=== PATIENT | female | born 1935 | race Hispanic/Latino ===

== ENCOUNTER → 2017-03-21 | Outpatient (CLI) | payer MEDICARE, OTHER ==
[~2017-03-21] MED LIST: BUDE10.2 IH; DILT180C86 PO; FURO40TA5 PO; GABA-529 PO; LATA2.5D2 OU; LEVO100T12 PO; LISI-617 PO; MOME17N NASAL; MONT10TA24 PO; PANT40TA25 PO; POTA10CA44 PO; VIT1TABL66 PO
== END | disposition home or self-care (01) ==
LOC: RAH 08:01
PROVIDERS: ATTEND Family Medicine
DX: Z12.31 Encounter for screening mammogram for malignant neoplasm of breast (principal)
CPT/HCPCS: 77067

== ENCOUNTER → 2018-08-13 | Outpatient (CLI) | payer OTHER | END | disposition home or self-care (01) | LOC: SHCH 13:45 | PROVIDERS: ATTEND Internal Medicine Cardiovascular Disease | DX: I11.9 Hypertensive heart disease without heart failure (principal); I07.1 Rheumatic tricuspid insufficiency; Z95.3 Presence of xenogenic heart valve | CPT/HCPCS: 93306 ==

== ENCOUNTER 2019-01-23 11:20 | Observation (INO) | payer OTHER ==
[2019-01-21 15:27] VITALS: BP 194/84
[2019-01-21 15:34] LABS: CREATININE 0.9 mg/dL (0.5-1.5); POTASSIUM 4.3 mmol/L (3.5-5.1)
[2019-01-21 15:39] LABS: BASOPHILS % (AUTO) 0.6 % (0.0-5.0); HEMATOCRIT 34.9 % (36-48); INR 1.76 (0.85-1.15); LYMPHOCYTES % (AUTO) 21.6 % (21.0-51.0); MEAN CORPUSCULAR HEMOGLOBIN 29.3 pg (27.0-33.0); MEAN CORPUSCULAR HGB CONC 32.2 g/dL (32.0-36.0); MONOCYTES % (AUTO) 11.9 % (3.0-13.0); NEUTROPHILS % (AUTO) 61.9 % (40.0-77.0); PARTIAL THROMBOPLASTIN TIME 31.7 SEC (26.3-35.5); PLATELET COUNT (AUTO) 88 K/uL (130-400); PROTHROMBIN TIME 18.1 SEC (9.6-11.6); RED BLOOD CELL COUNT(AUTO) 3.83 MIL/uL (4.00-5.50); RED CELL DISTRIBUTION WIDTH 14.4 % (11.0-15.5)
[2019-01-21 16:10] LABS: EOSINOPHILS % (MANUAL) 5 % (1-6); LYMPHOCYTES % (MANUAL) 19 % (22-44); MAN.DIFF COMMENT-IMPRESSION MANUAL DIFFERENTIAL; MONOCYTES % (MANUAL) 8 % (2-9); SEGMENTED NEUTROPHILS % 68 % (40-70)
--- NOTE | 2019-01-22 10:20 | NUR ---
labs informed marbin newsome of abnormal platelet level/h&h. she will inform dr. levine
--- NOTE | 2019-01-22 10:22 | NUR ---
LABS ONEAL, ABBY ON PHONE. PER DR. NATION, RECHECK CBC IN AM OF PROCEDURE.
[2019-01-23] VITALS (9 sets, daily range): BP systolic 138–173; BP diastolic 67–82
[~2019-01-23] VITALS: Ht 152.4 cm; Wt 100.6 kg
--- NOTE | 2019-01-23 10:18 | NUR ---
LABS INFORMED DR. RIOS HIGGINS'S COCOA POWDER MIXER OPERATOR OF PT 18.1, INR 1.76 DRAWN ON 01/21/19. ORDERS TO REPEAT PT/INR UPON ARRIVAL TODAY.
[~2019-01-23 11:20] MED LIST changes: +ALBU8.5H8 IH; +BRIM5DRO4 OU; -BUDE10.2 IH; +CARV12.511 PO; +CEFAZOLIN SODIUM 1 GM VIAL IVP ONE; -DILT180C86 PO; +FLUT16H NASAL; -LATA2.5D2 OU; -LEVO100T12 PO; +LEVO88TA7 PO; -LISI-617 PO; -MOME17N NASAL; +SACU1TAB7 PO; +SODIUM CHLORIDE 0.9% 1000ML 1,000 ML IV SCH; -VIT1TABL66 PO; +WARF2.5T9 PO
[2019-01-23 11:48] LABS: BASOPHILS % (AUTO) 0.5 % (0.0-5.0); EOSINOPHILS % (AUTO) 4.9 % (0.0-8.0); HEMATOCRIT 35.5 % (36-48); LYMPHOCYTES % (AUTO) 21.5 % (21.0-51.0); MEAN CORPUSCULAR HEMOGLOBIN 29.7 pg (27.0-33.0); MEAN CORPUSCULAR HGB CONC 32.7 g/dL (32.0-36.0); MEAN CORPUSCULAR VOLUME 90.8 fL (79-99); MONOCYTES % (AUTO) 10.2 % (3.0-13.0); NEUTROPHILS % (AUTO) 62.9 % (40.0-77.0); PLATELET COUNT (AUTO) 99 K/uL (130-400); RED BLOOD CELL COUNT(AUTO) 3.91 MIL/uL (4.00-5.50); RED CELL DISTRIBUTION WIDTH 14.2 % (11.0-15.5); WHITE BLOOD COUNT (AUTO) 3.2 K/uL (4.8-10.8)
[2019-01-23 12:01] LABS: INR 1.44 (0.85-1.15); PARTIAL THROMBOPLASTIN TIME 30.6 SEC (26.3-35.5); PROTHROMBIN TIME 14.9 SEC (9.6-11.6)
--- NOTE | 2019-01-23 13:12 | NUR ---
LABS REPEAT LABS REPORTED TO DR. RIOS IHGGINS'S CUSTOMER PROJECT MANAGER H/H 11.6/35.5, PLT 99, PT 14.9, INR 1.44. NO FURTHER ORDERS GIVEN, MAY PROCEED WITH PLANNED PROCEDURE.
[2019-01-23] MEDS ORDERED: BUPIVACAINE/PF 0.25% 30ML VIAL IJ ONE (15:36)
[2019-01-23] MEDS ORDERED: CEFAZOLIN SODIUM 1 GM VIAL ONE (15:36)
[2019-01-23] MEDS ORDERED: MIDAZOLAM HCL 1 MG/ML 2ML VIAL ONE ×4 (15:37→17:21)
[2019-01-23] MEDS ORDERED: LIDOCAINE HCL 1% MDV 50ML VIAL ONE (15:37)
[2019-01-23] MEDS ORDERED: MEPERIDINE-PF 25 MG/ML SYG ONE ×4 (15:37→17:20)
[2019-01-23] MEDS ORDERED: VANCOMYCIN 1GM+NS 250ML 500 ML IV ONE (15:50)
--- NOTE | 2019-01-23 15:50 | NUR ---
TO TRAVERTINE INSTALLER PT TAKEN TO TRAVERTINE INSTALLER VIA BED BY DANIEL SARAVIA. PT STABLE.
[2019-01-23] MEDS ORDERED: IODIXANOL 320 MG/ML 100 ML VIAL ONE (16:16)
[2019-01-23] MEDS ORDERED: TRAMADOL HCL 50 MG TABLET PO PRN (17:45)
[2019-01-23] MEDS ORDERED: POTASSIUM CHLORIDE 10 MEQ/TAB.SA PO PRN (17:45)
[2019-01-23] MEDS ORDERED: WARFARIN SODIUM 2.5 MG TAB PO SCH (19:00)
[2019-01-23] MEDS: GABAPENTIN 100 MG CAPSULE PO SCH (21:00)
[2019-01-23] MEDS ORDERED: VALSARTAN PO SCH (21:00)
[2019-01-23] MEDS ORDERED: SACUBITRIL PO SCH (21:00)
[2019-01-23] MEDS ORDERED: MONTELUKAST SODIUM 10 MG TAB PO SCH (21:00)
[2019-01-23] MEDS: CARVEDILOL 12.5 MG TABLET PO SCH (21:07)
[2019-01-23] MEDS: BRIMONIDINE TARTRATE 0.2% 5 ML BOTTLE OU SCH (21:08)
[2019-01-23] MEDS: FLUTICASONE PROPIONATE 50MCG/SPRAY 16 GM BOTTLE NS SCH (21:09)
[2019-01-24 03:00] VITALS: BP 139/63
[2019-01-24 03:52] LABS: BASOPHILS % (AUTO) 0.4 % (0.0-5.0); EOSINOPHILS % (AUTO) 3.6 % (0.0-8.0); HEMATOCRIT 31.8 % (36-48); LYMPHOCYTES % (AUTO) 20.1 % (21.0-51.0); MEAN CORPUSCULAR HEMOGLOBIN 30.5 pg (27.0-33.0); MEAN CORPUSCULAR HGB CONC 33.4 g/dL (32.0-36.0); MEAN CORPUSCULAR VOLUME 91.1 fL (79-99); MONOCYTES % (AUTO) 11.9 % (3.0-13.0); PLATELET COUNT (AUTO) 79 K/uL (130-400); RED BLOOD CELL COUNT(AUTO) 3.49 MIL/uL (4.00-5.50); RED CELL DISTRIBUTION WIDTH 14.2 % (11.0-15.5); WHITE BLOOD COUNT (AUTO) 3.6 K/uL (4.8-10.8)
[2019-01-24 04:00] LABS: CREATININE 0.9 mg/dL (0.5-1.5); POTASSIUM 3.9 mmol/L (3.5-5.1)
--- NOTE | 2019-01-24 06:00 | NUR ---
Patient resting in bed. Radial pulses palpable. Left upper extremity warm to touch. C/O pain and pressure to site. Medicated x1 with ordered pain med. NO hematoma or active bleeding to site.
[2019-01-24] MEDS ORDERED: LEVOTHYROXINE 88 MCG TABLET PO SCH (06:30)
[2019-01-24] MEDS ORDERED: ALBUTEROL SULFATE 0.083% 2.5 MG/3 ML INH IH PRN (06:30)
[2019-01-24] MEDS ORDERED: ACETAMINOPHEN 325 MG TAB PO SCH (07:30)
[2019-01-24 07:58] VITALS: BP 143/72
[2019-01-24] MEDS: GABAPENTIN 100 MG CAPSULE PO SCH (08:57)
[2019-01-24] MEDS: CARVEDILOL 12.5 MG TABLET PO SCH (08:57)
[2019-01-24] MEDS: FLUTICASONE PROPIONATE 50MCG/SPRAY 16 GM BOTTLE NS SCH (08:58)
[2019-01-24] MEDS: BRIMONIDINE TARTRATE 0.2% 5 ML BOTTLE OU SCH (08:58)
[2019-01-24] MEDS ORDERED: PANTOPRAZOLE SODIUM 40 MG TABLET.DR PO SCH (09:00)
[2019-01-24] MEDS ORDERED: FUROSEMIDE 40 MG TABLET PO SCH (09:00)
[2019-01-24 11:36] VITALS: BP_SYST 116; BP_SYST 16; BP_DIAS 54
--- NOTE | 2019-01-24 14:25 | NUR ---
DISCHARGE VERBAL & WRITTEN DISCHARGE INSTRUCTIONS REVIEWED & GIVEN TO PT, DAUGHTER, & SPOUSE. QUESTIONS ENCOURAGED & CLARIFIED. PROPER CARE & ACTIVITY AFTER BiV ICD UPGRADE REVIEWED. PT TO CONTINUE HOME MEDICATIONS. ARM PRECAUTIONS-PPM REINFORCED. TELE ANDREW REMOVED. IV DISCONTINUED. PT & FAMILY TO GATHER PERSONAL BELONGINGS. WILL NOTIFY STAFF WHEN READY TO BE TAKEN TO PRIVATE VEHICLE.
--- NOTE | 2019-01-24 15:15 | NUR ---
DISCHARGE PT TAKEN TO PRIVATE VEHICLE VIA WC BY Stephanie BLACKWOOD PCP, ACCOMPANIED BY FAMILY. NO DISTRESS NOTED.
== END 2019-01-24 15:15 | disposition home or self-care (01) ==
LOC: DAH 11:20 → 2DH 11:21
PROVIDERS: ADMIT Internal Medicine; ATTEND Internal Medicine
DX: I44.2 Atrioventricular block, complete (principal); I50.22 Chronic systolic (congestive) heart failure; I48.92 Unspecified atrial flutter; I09.81 Rheumatic heart failure; I42.9 Cardiomyopathy, unspecified; I05.0 Rheumatic mitral stenosis; Z95.2 Presence of prosthetic heart valve; Z95.0 Presence of cardiac pacemaker; Z79.01 Long term (current) use of anticoagulants; Z79.899 Other long term (current) drug therapy; Z88.0 Allergy status to penicillin; Z88.6 Allergy status to analgesic agent; Z88.5 Allergy status to narcotic agent
CPT/HCPCS: 33225; 33233; 33249; 36415 ×3; 71045; 80048 ×2; 82948 ×2; 85025 ×3; 85610 ×2; 85730 ×2; 93005; A4215; A4216; A4221; A4222; A4223 ×3; A4606; A4663; C1769; C1882; C1895; C1900; G0378 ×21; J2175 ×4; J2250 ×4; J3370; J3490 ×2; J7030; Q9967; 99156; 99157; J0690

== ENCOUNTER → 2019-02-25 | Outpatient (CLI) | payer OTHER ==
[~2019-02-25] VITALS: Ht 152.4 cm; Wt 97.4 kg
[~2019-02-25] MED LIST changes: +ACET-2743 PO; +ALBU18HF7 IH; +CALC-1205 PO; -CEFAZOLIN SODIUM 1 GM VIAL IVP ONE; +CEPH500T PO; +CHOL100044 PO; +LATA7.5D OP; -SODIUM CHLORIDE 0.9% 1000ML 1,000 ML IV SCH; +SODIUM CHLORIDE 0.9% 500ML 500 ML IV SCH; +WARF2.5T85 PO
[2019-02-25 12:10] VITALS: BP 176/73
[2019-02-25 12:28] LABS: BASOPHILS % (AUTO) 0.2 % (0.0-5.0); EOSINOPHILS % (AUTO) 3.7 % (0.0-8.0); HEMATOCRIT 37.9 % (36-48); LYMPHOCYTES % (AUTO) 22.8 % (21.0-51.0); MEAN CORPUSCULAR HEMOGLOBIN 28.5 pg (27.0-33.0); MEAN CORPUSCULAR HGB CONC 31.4 g/dL (32.0-36.0); MEAN CORPUSCULAR VOLUME 90.9 fL (79-99); MONOCYTES % (AUTO) 10.1 % (3.0-13.0); NEUTROPHILS % (AUTO) 62.5 % (40.0-77.0); PLATELET COUNT (AUTO) 111 K/uL (130-400); RED BLOOD CELL COUNT(AUTO) 4.17 MIL/uL (4.00-5.50); RED CELL DISTRIBUTION WIDTH 12.9 % (11.0-15.5)
[2019-02-25 12:42] LABS: INR 1.47 (0.85-1.15); PROTHROMBIN TIME 15.2 SEC (9.6-11.6)
[2019-02-25 12:45] LABS: CREATININE 0.9 mg/dL (0.5-1.5)
--- NOTE | 2019-02-25 12:51 | NUR ---
Called Suma CHATTERJEE and spoke to her about pt coumadin regimen, per Suma De Santiago patient inr was high this past sunday and they have been making adjustment, pt is to continue medication regimen as explained to her and tomorrow 02/26/19 she will follow up at the office for pt/inr. I also advised Smua De Santiago that pt was taking an antibiotic given from Primary doctor, Suma CHATTERJEE is aware. No new orders at this moment.
== END ==
LOC: EDSTATUS 08:00 → DAH 10:00
PROVIDERS: ATTEND Internal Medicine Cardiovascular Disease
DX: Z01.818 Encounter for other preprocedural examination (principal); I48.3 Typical atrial flutter; Z88.0 Allergy status to penicillin; Z88.5 Allergy status to narcotic agent; Z88.6 Allergy status to analgesic agent; Z79.01 Long term (current) use of anticoagulants
CPT/HCPCS: 36415; 80048; 85025; 85610; 85730; 93005

== ENCOUNTER 2019-04-03 08:18 | Day surgery (SDC) | payer OTHER ==
[2019-04-01 09:45] LABS: BASOPHILS % (AUTO) 0.3 % (0.0-5.0); EOSINOPHILS % (AUTO) 3.5 % (0.0-8.0); HEMATOCRIT 33.4 % (36-48); MEAN CORPUSCULAR HEMOGLOBIN 28.5 pg (27.0-33.0); MEAN CORPUSCULAR HGB CONC 30.5 g/dL (32.0-36.0); MEAN CORPUSCULAR VOLUME 93.3 fL (79-99); MONOCYTES % (AUTO) 10.2 % (3.0-13.0); NEUTROPHILS % (AUTO) 61.7 % (40.0-77.0); PLATELET COUNT (AUTO) 87 K/uL (130-400); RED BLOOD CELL COUNT(AUTO) 3.58 MIL/uL (4.00-5.50); RED CELL DISTRIBUTION WIDTH 13.4 % (11.0-15.5); WHITE BLOOD COUNT (AUTO) 3.1 K/uL (4.8-10.8)
[2019-04-01 09:52] VITALS: BP 170/81
[2019-04-01 09:56] LABS: CREATININE 0.9 mg/dL (0.5-1.5); INR 1.16 (0.85-1.15); PARTIAL THROMBOPLASTIN TIME 30.1 SEC (26.3-35.5); POTASSIUM 4.3 mmol/L (3.5-5.1); PROTHROMBIN TIME 12.1 SEC (9.6-11.6)
--- NOTE | 2019-04-01 10:52 | NUR ---
CALLED ELIZABET CHATTERJEE (DOCTOR RIOS) AND SHE STATED THAT THEY ARE AWARE THE PATIENT IS NO LONGER ON COUMADIN AND PATIENT IS ON ELIQUIS.
--- NOTE | 2019-04-02 18:52 | NUR ---
ABNORMAL LABS REPORTED TO SEN MCNEAL NEW ORDERS TO REPEAT CBC DOS.
[~2019-04-03] VITALS: Ht 153.7 cm; Wt 99.3 kg
[~2019-04-03 08:18] MED LIST changes: -ACET-2743 PO; -ALBU8.5H8 IH; +APIX5TAB PO; +BRIM5DRO4 OD; -BRIM5DRO4 OU; -CEPH500T PO; +FLUT15.845 NS; -FLUT16H NASAL; -GABA-529 PO; -LATA7.5D OP; +LATA7.5D OU; -MONT10TA24 PO; +MONT10TA26 PO; +SODIUM CHLORIDE 0.9% 1000ML 1,000 ML IV SCH; -SODIUM CHLORIDE 0.9% 500ML 500 ML IV SCH; -WARF2.5T85 PO; -WARF2.5T9 PO
--- NOTE | 2019-04-03 09:03 | NUR ---
PATIENT ARRIVED TO DAY PATIENT ACCOMPANIED BY HER SELF. PATIENT AAOX3, RESPIRATIONS UNLABORED, VITAL SIGNS STABLE. PROCEDURE VERIFIED WITH PATIENT AND HOSPITAL ROUTINE EXPLAINED.
[2019-04-03 09:22] LABS: BASOPHILS % (AUTO) 0.3 % (0.0-5.0); EOSINOPHILS % (AUTO) 3.1 % (0.0-8.0); HEMATOCRIT 32.1 % (36-48); LYMPHOCYTES % (AUTO) 24.8 % (21.0-51.0); MEAN CORPUSCULAR HEMOGLOBIN 29.1 pg (27.0-33.0); MEAN CORPUSCULAR HGB CONC 31.5 g/dL (32.0-36.0); MEAN CORPUSCULAR VOLUME 92.5 fL (79-99); MONOCYTES % (AUTO) 10.8 % (3.0-13.0); NEUTROPHILS % (AUTO) 60.3 % (40.0-77.0); PLATELET COUNT (AUTO) 84 K/uL (130-400); RED BLOOD CELL COUNT(AUTO) 3.47 MIL/uL (4.00-5.50); RED CELL DISTRIBUTION WIDTH 13.5 % (11.0-15.5); WHITE BLOOD COUNT (AUTO) 2.9 K/uL (4.8-10.8)
[2019-04-03 09:30] VITALS: BP 135/75
--- NOTE | 2019-04-03 09:43 | NUR ---
LABS INFORMED SEN WOLFF OF NEW WBC/PLATELETS RESULTS. SHE WILL INFORM DR. NATION AND CALL ME BACK.
[2019-04-03 10:27] LABS: BAND NEUTROPHILS % (MANUAL) 1 % (0-2); BASOPHILS % (MANUAL) 1 % (0-2); EOSINOPHILS % (MANUAL) 2 % (1-6); LYMPHOCYTES % (MANUAL) 20 % (22-44); MAN.DIFF COMMENT-IMPRESSION MANUAL DIFFERENTIAL; MONOCYTES % (MANUAL) 8 % (2-9); PLATELET MORPHOLOGY COMMENT DECREASED; SEGMENTED NEUTROPHILS % 68 % (40-70)
--- NOTE | 2019-04-03 11:17 | NUR ---
HANDOFF REPORT GIVEN TO PIETER MONAE RN AT BEDSIDE USING SBAR, ALL QUESTIONS/CONCERNS ADDRESSED REGARDING PATIENT CARE.
[2019-05-01] MEDS ORDERED: GABA-529 PO (12:08)
[2019-05-01] MEDS ORDERED: ALBU8.5H8 IH (12:14)
[2019-05-01] MEDS ORDERED: ACET-2123 PO (12:14)
== END 2019-04-03 16:25 | disposition home or self-care (01) ==
LOC: DAH 08:18
PROVIDERS: ATTEND Internal Medicine Cardiovascular Disease
DX: I48.3 Typical atrial flutter (principal); I25.10 Atherosclerotic heart disease of native coronary artery without angina pectoris; I11.0 Hypertensive heart disease with heart failure; I50.42 Chronic combined systolic (congestive) and diastolic (congestive) heart failure; E11.9 Type 2 diabetes mellitus without complications; E66.9 Obesity, unspecified; G47.30 Sleep apnea, unspecified; Z68.41 Body mass index [BMI] 40.0-44.9, adult; Z88.0 Allergy status to penicillin; Z88.5 Allergy status to narcotic agent; Z88.8 Allergy status to other drugs, medicaments and biological substances; Z79.01 Long term (current) use of anticoagulants; Z79.899 Other long term (current) drug therapy; Z98.890 Other specified postprocedural states; Z82.49 Family history of ischemic heart disease and other diseases of the circulatory system
CPT/HCPCS: 36415 ×2; 80048; 82948; 85025 ×2; 85610; 85730; A4215; A4216; A4221; A4222; A4223 ×2; A4606; A4663; J7030

== ENCOUNTER → 2019-05-01 | Outpatient (CLI) | payer OTHER ==
[~2019-05-01] VITALS: Ht 152.4 cm; Wt 101.0 kg
[~2019-05-01] MED LIST changes: +ACET-2123 PO; +ALBU8.5H8 IH; +CA C1TAB74 PO; +GABA-529 PO; +MV-M1TAB20 PO; -SODIUM CHLORIDE 0.9% 1000ML 1,000 ML IV SCH
[2019-05-01 11:27] VITALS: BP 164/74
[2019-05-01 11:29] LABS: CREATININE 0.9 mg/dL (0.5-1.5); POTASSIUM 4.3 mmol/L (3.5-5.1)
[2019-05-01 11:40] LABS: BASOPHILS % (AUTO) 0.3 % (0.0-5.0); EOSINOPHILS % (AUTO) 3.4 % (0.0-8.0); HEMATOCRIT 36.4 % (36-48); LYMPHOCYTES % (AUTO) 23.1 % (21.0-51.0); MEAN CORPUSCULAR HEMOGLOBIN 28.2 pg (27.0-33.0); MEAN CORPUSCULAR HGB CONC 30.8 g/dL (32.0-36.0); MEAN CORPUSCULAR VOLUME 91.7 fL (79-99); MONOCYTES % (AUTO) 10.5 % (3.0-13.0); NEUTROPHILS % (AUTO) 62.4 % (40.0-77.0); PLATELET COUNT (AUTO) 90 K/uL (130-400); RED BLOOD CELL COUNT(AUTO) 3.97 MIL/uL (4.00-5.50); RED CELL DISTRIBUTION WIDTH 13.3 % (11.0-15.5); WHITE BLOOD COUNT (AUTO) 3.3 K/uL (4.8-10.8)
[2019-05-01 11:48] LABS: INR 1.17 (0.85-1.15); PROTHROMBIN TIME 12.2 SEC (9.6-11.6)
--- NOTE | 2019-05-01 15:30 | NUR ---
RE: ABNORMAL LABS REPORTED PT 12.2, INR 1.[address] NATION. NO NEW ORDERS ORDERS RECEIVED, MAY PROCEED WITH ABLATION ORDERED.
== END ==
LOC: EDSTATUS 10:00 → DAH 10:00
PROVIDERS: ATTEND Internal Medicine Cardiovascular Disease
DX: Z01.818 Encounter for other preprocedural examination (principal); I48.92 Unspecified atrial flutter; Z79.899 Other long term (current) drug therapy; Z88.0 Allergy status to penicillin; Z88.5 Allergy status to narcotic agent; Z88.8 Allergy status to other drugs, medicaments and biological substances; Z82.49 Family history of ischemic heart disease and other diseases of the circulatory system
CPT/HCPCS: 36415; 80048; 85025; 85610; 85730

== ENCOUNTER 2019-05-30 05:57 | Day surgery (SDC) | payer OTHER ==
[2019-05-28 10:32] VITALS: BP 141/62
[2019-05-28 10:32] LABS: BASOPHILS % (AUTO) 0.3 % (0.0-5.0); HEMATOCRIT 34.7 % (36-48); LYMPHOCYTES % (AUTO) 26.4 % (21.0-51.0); MEAN CORPUSCULAR HEMOGLOBIN 28.6 pg (27.0-33.0); MEAN CORPUSCULAR HGB CONC 30.5 g/dL (32.0-36.0); MEAN CORPUSCULAR VOLUME 93.5 fL (79-99); MONOCYTES % (AUTO) 10.4 % (3.0-13.0); NEUTROPHILS % (AUTO) 59.2 % (40.0-77.0); PLATELET COUNT (AUTO) 82 K/uL (130-400); RED BLOOD CELL COUNT(AUTO) 3.71 MIL/uL (4.00-5.50); RED CELL DISTRIBUTION WIDTH 13.4 % (11.0-15.5)
[2019-05-28 10:52] LABS: INR 1.18 (0.85-1.15); PROTHROMBIN TIME 12.7 SEC (9.6-11.6)
[2019-05-28 11:05] LABS: EOSINOPHILS % (MANUAL) 4 % (1-6); LYMPHOCYTES % (MANUAL) 21 % (22-44); MONOCYTES % (MANUAL) 6 % (2-9); SEGMENTED NEUTROPHILS % 69 % (40-70)
[2019-05-28 11:06] LABS: MAN.DIFF COMMENT-IMPRESSION MANUAL DIFFERENTIAL; PLATELET MORPHOLOGY COMMENT DECREASED
--- NOTE | 2019-05-29 10:58 | NUR ---
reported labs to Doctor Lopez wbc3.0, h/h 10.6/34.7, plt 82 and inr 1.18, pt 12.7, no new orders okay to proceed.
[~2019-05-30] VITALS: Ht 149.9 cm; Wt 100.1 kg
[2019-05-30] VITALS (8 sets, daily range): BP systolic 93–143; BP diastolic 45–61
[~2019-05-30 05:57] MED LIST changes: -CA C1TAB74 PO; -CALC-1205 PO; -CHOL100044 PO; -MV-M1TAB20 PO; -PANT40TA25 PO; +PANT40TA54 PO; -POTA10CA44 PO; +SODIUM CHLORIDE 0.9% 500ML 500 ML IV SCH
[2019-05-30] MEDS ORDERED: SODIUM CHLORIDE 0.9% 1000ML 1,000 ML IV ONE (06:25)
--- NOTE | 2019-05-30 07:40 | NUR ---
PRE OP PT ARRIVED IN NO DISTRESS. PT HERE FOR A FLUTTER ABLATION. PT CONNECTED TO REPAIR ELECTRIC MOTOR ASSEMBLER, CALL LIGHT WITH IN REACH, BED IN LOWEST POSITION.
[2019-05-30] MEDS ORDERED: CA C1TAB74 PO (08:37)
[2019-05-30] MEDS ORDERED: MV-M1TAB20 PO (08:37)
[2019-05-30] MEDS ORDERED: MEPERIDINE-PF 25 MG/ML SYG ONE ×4 (10:03→12:20)
[2019-05-30] MEDS ORDERED: MIDAZOLAM HCL 1 MG/ML 2ML VIAL ONE ×4 (10:03→12:20)
[2019-05-30] MEDS ORDERED: HEPARIN SODIUM 1000UNIT/ML 10ML VIAL ONE (10:03)
[2019-05-30] MEDS ORDERED: LIDOCAINE HCL 2% 20ML ONE ×2 (10:03→10:42)
--- NOTE | 2019-05-30 10:27 | NUR ---
TRANSFER PT TAKEN TO COMMERCIAL SALES SPECIALIST VIA BED IN NO DISTRESS BY MICHELLE SARAVIA
--- NOTE | 2019-05-30 13:00 | NUR ---
md dr levine in to talk to daughter. procedure went well. pt did have multiple arrhythmias pt expected to be discharged today and start eliliamis tonjune. follow up in 1-2 weeks. daughter voiced understanding
== END 2019-05-30 16:10 | disposition home or self-care (01) ==
LOC: DAH 05:57
PROVIDERS: ATTEND Internal Medicine Cardiovascular Disease
DX: I48.92 Unspecified atrial flutter (principal); I25.10 Atherosclerotic heart disease of native coronary artery without angina pectoris; I25.5 Ischemic cardiomyopathy; I50.32 Chronic diastolic (congestive) heart failure; I09.89 Other specified rheumatic heart diseases; Z88.0 Allergy status to penicillin; Z88.8 Allergy status to other drugs, medicaments and biological substances; Z88.5 Allergy status to narcotic agent; Z79.01 Long term (current) use of anticoagulants; Z79.899 Other long term (current) drug therapy; Z98.890 Other specified postprocedural states; Z95.0 Presence of cardiac pacemaker
CPT/HCPCS: 36415; 80048; 82948 ×2; 85025; 85610; 85730; 93005; 93613; 93621; 93653; A4215; A4216; A4221; A4222; A4223 ×3; A4606; A4649 ×2; A4663; C1730; C1732; C1894 ×2; J1644 ×2; J2175 ×4; J2250 ×4; J3490 ×2; J7030; 99156; 99157

== ENCOUNTER → 2019-12-19 | Outpatient (CLI) | payer OTHER ==
[~2019-12-19] MED LIST changes: +MV-M1TAB20 PO; -SODIUM CHLORIDE 0.9% 500ML 500 ML IV SCH
== END | disposition home or self-care (01) ==
LOC: SHCH 09:29
PROVIDERS: ATTEND Internal Medicine Cardiovascular Disease
DX: I42.9 Cardiomyopathy, unspecified (principal); Z95.2 Presence of prosthetic heart valve
CPT/HCPCS: 93306; 93356

== ENCOUNTER 2020-04-07 07:34 | Day surgery (SDC) | payer OTHER ==
[2020-04-02 10:49] LABS: BASOPHILS % (AUTO) 0.3 % (0.0-5.0); EOSINOPHILS % (AUTO) 2.7 % (0.0-8.0); HEMATOCRIT 32.7 % (36-48); LYMPHOCYTES % (AUTO) 19.5 % (21.0-51.0); MEAN CORPUSCULAR HEMOGLOBIN 28.7 pg (27.0-33.0); MEAN CORPUSCULAR HGB CONC 31.2 g/dL (32.0-36.0); MEAN CORPUSCULAR VOLUME 92.1 fL (79-99); MONOCYTES % (AUTO) 12.2 % (3.0-13.0); NEUTROPHILS % (AUTO) 64.5 % (40.0-77.0); PLATELET COUNT (AUTO) 98 K/uL (130-400); RED BLOOD CELL COUNT(AUTO) 3.55 MIL/uL (4.00-5.50); RED CELL DISTRIBUTION WIDTH 14.2 % (11.0-15.5); WHITE BLOOD COUNT (AUTO) 3.7 K/uL (4.8-10.8)
[2020-04-02 10:52] LABS: POTASSIUM 4.5 mmol/L (3.5-5.1)
[2020-04-06 12:35] VITALS: BP 171/65
[~2020-04-07] VITALS: Ht 152.4 cm; Wt 103.5 kg
[~2020-04-07 07:34] MED LIST changes: -ACET-2123 PO; +CALC600T15 PO; -CARV12.511 PO; +CYAN250014 PO; +DRON400T2 PO; +METO-408 PO; -MONT10TA26 PO; +MONT10TA96 PO; -MV-M1TAB20 PO; +POTA99TA21 PO; +VITAD50000 PO
[2020-04-07] MEDS ORDERED: SODIUM CHLORIDE 0.9% 1000ML 1,000 ML IV ONE (07:58)
== END 2020-04-07 10:00 | disposition home or self-care (01) ==
LOC: DAH 07:34
PROVIDERS: ATTEND Internal Medicine Cardiovascular Disease
DX: I47.1 Supraventricular tachycardia (principal); Z20.828 Contact with and (suspected) exposure to other viral communicable diseases; I50.33 Acute on chronic diastolic (congestive) heart failure; Z88.1 Allergy status to other antibiotic agents; Z88.8 Allergy status to other drugs, medicaments and biological substances; Z88.6 Allergy status to analgesic agent; Z53.8 Procedure and treatment not carried out for other reasons; Z79.899 Other long term (current) drug therapy
CPT/HCPCS: 36415; 93005; A4215; A4216; A4221; A4222; A4223 ×3; A4606; A4663; C9803; J7030; U0003

== ENCOUNTER 2020-05-19 07:56 | Day surgery (SDC) | payer OTHER ==
[2020-05-17 10:17] VITALS: BP 188/64
[2020-05-17 10:37] LABS: EOSINOPHILS % (AUTO) 3.4 % (0.0-8.0); HEMATOCRIT 33.5 % (36-48); LYMPHOCYTES % (AUTO) 22.5 % (21.0-51.0); MEAN CORPUSCULAR HEMOGLOBIN 28.2 pg (27.0-33.0); MEAN CORPUSCULAR HGB CONC 31.3 g/dL (32.0-36.0); MEAN CORPUSCULAR VOLUME 89.8 fL (79-99); MONOCYTES % (AUTO) 9.4 % (3.0-13.0); PLATELET COUNT (AUTO) 98 K/uL (130-400); RED BLOOD CELL COUNT(AUTO) 3.73 MIL/uL (4.00-5.50); RED CELL DISTRIBUTION WIDTH 14.1 % (11.0-15.5)
[2020-05-17 10:47] LABS: CREATININE 0.9 mg/dL (0.5-1.5); INR 1.21 (0.85-1.15); POTASSIUM 4.4 mmol/L (3.5-5.1)
[2020-05-17 10:48] LABS: PARTIAL THROMBOPLASTIN TIME 31.6 SEC (26.3-35.5)
[2020-05-17 11:08] LABS: EOSINOPHILS % (MANUAL) 3 % (1-6); LYMPHOCYTES % (MANUAL) 11 % (22-44); MAN.DIFF COMMENT-IMPRESSION MANUAL DIFFERENTIAL; MONOCYTES % (MANUAL) 8 % (2-9); PLATELET MORPHOLOGY COMMENT DECREASED; REACTIVE LYMPHOCYTES 2 % (0-0); SEGMENTED NEUTROPHILS % 76 % (40-70)
[~2020-05-19] VITALS: Ht 124.5 cm; Wt 97.5 kg
[2020-05-19] VITALS (9 sets, daily range): BP systolic 136–177; BP diastolic 62–70
[~2020-05-19 07:56] MED LIST changes: -CALC600T15 PO; -DRON400T2 PO; +IRON PO; +METO-391 PO; -METO-408 PO; +MONT-39 PO; -MONT10TA96 PO; -POTA99TA21 PO; +POTA99TA26 PO
[2020-05-19] MEDS ORDERED: 0.9%NACL 1000ML 1,000 ML IV SCH (08:00)
[2020-05-19] MEDS ORDERED: ISOPROTERENOL HCL 0.2 MG/ML AMP/VIAL/BAG ONE (12:11)
[2020-05-19] MEDS ORDERED: MIDAZOLAM HCL 1 MG/ML 2ML VIAL ONE ×3 (12:11→14:27)
[2020-05-19] MEDS ORDERED: MEPERIDINE-PF 25 MG/ML SYG ONE ×3 (12:11→14:27)
[2020-05-19] MEDS ORDERED: LIDOCAINE HCL 400MG/20ML VIAL ONE (12:12)
[2020-05-19] MEDS ORDERED: HEPARIN 10,000 UNIT/10ML (1,000 UNIT/ML) VIAL ONE (12:20)
== END 2020-05-19 18:50 | disposition home or self-care (01) ==
LOC: DAH 07:56
PROVIDERS: ATTEND Internal Medicine Cardiovascular Disease
DX: I47.1 Supraventricular tachycardia (principal); I50.22 Chronic systolic (congestive) heart failure; I48.20 Chronic atrial fibrillation, unspecified; I48.92 Unspecified atrial flutter; I25.5 Ischemic cardiomyopathy; I44.2 Atrioventricular block, complete; G47.30 Sleep apnea, unspecified; I25.10 Atherosclerotic heart disease of native coronary artery without angina pectoris; Z88.6 Allergy status to analgesic agent; Z88.0 Allergy status to penicillin; Z88.8 Allergy status to other drugs, medicaments and biological substances; Z79.01 Long term (current) use of anticoagulants; Z79.899 Other long term (current) drug therapy; Z98.890 Other specified postprocedural states; Z95.0 Presence of cardiac pacemaker
CPT/HCPCS: 36415; 80048; 85025; 85610; 85730; 93613; 93621; 93653; A4215; A4216; A4221; A4222; A4223 ×3; A4606; A4649 ×2; A4663; C1730 ×4; C1731; C1732; C1894 ×5; J1644 ×2; J2175 ×3; J2250 ×3; J3490; J7030; 99156; 99157

== ENCOUNTER → 2021-02-02 | Outpatient (CLI) | payer OTHER ==
[~2021-02-02] MED LIST changes: -ALBU18HF7 IH
== END | disposition home or self-care (01) ==
LOC: RAH 11:05
PROVIDERS: ATTEND Urology
DX: N28.1 Cyst of kidney, acquired (principal)
CPT/HCPCS: 76770

== ENCOUNTER → 2021-03-02 | Outpatient (CLI) | payer OTHER | END | disposition home or self-care (01) | LOC: RAH 09:04 | PROVIDERS: ATTEND Urology | DX: N20.0 Calculus of kidney (principal); N28.1 Cyst of kidney, acquired; N28.89 Other specified disorders of kidney and ureter; N85.2 Hypertrophy of uterus; I25.10 Atherosclerotic heart disease of native coronary artery without angina pectoris; K57.90 Diverticulosis of intestine, part unspecified, without perforation or abscess without bleeding; M47.815 Spondylosis without myelopathy or radiculopathy, thoracolumbar region | CPT/HCPCS: 74176 ==

== ENCOUNTER 2021-03-06 11:57 | Inpatient (IN) | payer OTHER ==
[~2021-03-06] VITALS: Ht 149.9 cm; Wt 93.8 kg
[2021-03-06] MEDS ORDERED: ONDANSETRON 4MG INJ IVP ONE (12:30)
[2021-03-06] MEDS ORDERED: 0.9%NACL 1000ML 1,000 ML IV ONE (12:30)
[2021-03-06] MEDS ORDERED: MORPHINE 2 MG SYG IVP ONE (12:30)
[2021-03-06 12:53] LABS: BASOPHILS % (AUTO) 0.1 % (0.0-5.0); EOSINOPHILS % (AUTO) 0.6 % (0.0-8.0); HEMATOCRIT 32.8 % (36-48); LYMPHOCYTES % (AUTO) 13.6 % (21.0-51.0); MEAN CORPUSCULAR HEMOGLOBIN 28.9 pg (27.0-33.0); MEAN CORPUSCULAR HGB CONC 31.4 g/dL (32.0-36.0); MEAN CORPUSCULAR VOLUME 92.1 fL (79-99); MONOCYTES % (AUTO) 11.9 % (3.0-13.0); NEUTROPHILS % (AUTO) 73.4 % (40.0-77.0); PLATELET COUNT (AUTO) 89 K/uL (130-400); RED BLOOD CELL COUNT(AUTO) 3.56 MIL/uL (4.00-5.50); RED CELL DISTRIBUTION WIDTH 13.9 % (11.0-15.5); WHITE BLOOD COUNT (AUTO) 7.1 K/uL (4.8-10.8)
[2021-03-06 12:59] LABS: CREATININE 0.7 mg/dL (0.5-1.5); POTASSIUM 3.7 mmol/L (3.5-5.1)
[2021-03-06 13:03] LABS: ALBUMIN 3.3 g/dL (3.5-5.0); BILIRUBIN,TOTAL 1.3 mg/dL (0.2-1.0); CRP QUANTITATIVE 51.7 mg/L (0.00-9.0); TOTAL PROTEIN, SERUM 7.1 g/dL (6.0-8.3)
[2021-03-06 13:06] LABS: INR 1.32 (0.85-1.15)
[2021-03-06 13:07] LABS: PARTIAL THROMBOPLASTIN TIME 32.8 SEC (26.3-35.5)
[2021-03-06 13:23] LABS: B-TYPE NATRIURETIC PEPTIDE 597 pg/mL (0-100)
[2021-03-06 16:40] LABS: APPEARANCE,URINE Cloudy (CLEAR); BILIRUBIN,URINE Small (NEGATIVE); COLOR,URINE Dark Yellow (YELLOW); GLUCOSE, URINE (UA) Negative (NEGATIVE); KETONES,URINE Trace mg/dL (NEGATIVE); LEUKOCYTE ESTERASE ,URINE Small (NEGATIVE); NITRATE,URINE Positive (NEGATIVE); OCCULT BLOOD,URINE Moderate (NEGATIVE); PROTEIN,URINE POS 2+ mg/dL (NEGATIVE)
[2021-03-06 16:53] LABS: BACTERIA,URINE Moderate /HPF (None Seen); MUCUS,URINE Few LPF (None Seen); SQUAMOUS EPITHELIAL CELL,UR None Seen /HPF (0-2)
[2021-03-06] MEDS ORDERED: HYDRALAZINE 20MG/ML VIAL IV PRN (17:00)
[2021-03-06] MEDS ORDERED: ACETAMINOPHEN 325 MG TAB PO PRN (17:00)
[2021-03-06] MEDS ORDERED: 0.9%NACL 1000ML 1,000 ML IV SCH (17:00)
[2021-03-06] MEDS ORDERED: PANTOPRAZOLE 40MG INJ 80 MG in 0.9%NACL 100ML 100 ML IV SCH (17:00)
[2021-03-06 17:36] LABS: HEMATOCRIT 32.7 % (36-48)
[2021-03-06] MEDS ORDERED: 0.9%NACL 100ML 100 ML ONE (17:48)
[2021-03-06] MEDS ORDERED: PANTOPRAZOLE 40 MG/VIAL ONE (17:48)
[2021-03-06] MEDS: INSULIN HUMULIN R 100 UNIT/ML 3ML SQ SCH (18:00)
[2021-03-06] MEDS: IPRATROPIUM 0.5 MG/2.5 ML INH IH SCH ×2 (18:30→23:40)
[2021-03-06] MEDS ORDERED: LIDOCAINE 5% TOPICAL PATCH TP ONE (18:30)
[2021-03-06] MEDS: TRAMADOL HCL 50 MG TABLET PO PRN (18:57)
[2021-03-06] MEDS: METRONIDAZOLE 500 MG TABLET PO SCH (18:57)
[2021-03-06] MEDS: FUROSEMIDE 20MG VIAL IV SCH (18:57)
[2021-03-06] MEDS: LEVOFLOXACIN 500 MG/D5W 100 ML 100 ML IV SCH (19:51)
[2021-03-06 23:30] VITALS: BP 177/73
[2021-03-07 00:38] LABS: HEMATOCRIT 33.3 % (36-48)
[2021-03-07] MEDS: METRONIDAZOLE 500 MG TABLET PO SCH ×3 (01:37→17:07)
[2021-03-07] MEDS: TRAMADOL HCL 50 MG TABLET PO PRN ×2 (01:53→09:50)
[2021-03-07 03:50] VITALS: BP 134/54
[2021-03-07 04:02] LABS: HEMATOCRIT 30.3 % (36-48); MEAN CORPUSCULAR HEMOGLOBIN 28.8 pg (27.0-33.0); MEAN CORPUSCULAR HGB CONC 31.4 g/dL (32.0-36.0); MEAN CORPUSCULAR VOLUME 91.8 fL (79-99); RED BLOOD CELL COUNT(AUTO) 3.3 MIL/uL (4.00-5.50); WHITE BLOOD COUNT (AUTO) 5.9 K/uL (4.8-10.8)
[2021-03-07 04:14] LABS: CREATININE 0.8 mg/dL (0.5-1.5); POTASSIUM 3.7 mmol/L (3.5-5.1)
[2021-03-07] MEDS: FUROSEMIDE 20MG VIAL IV SCH (05:25)
[2021-03-07] MEDS: INSULIN HUMULIN R 100 UNIT/ML 3ML SQ SCH ×5 (05:29→20:35)
[2021-03-07] MEDS: IPRATROPIUM 0.5 MG/2.5 ML INH IH SCH ×4 (06:25→23:07)
[2021-03-07] MEDS ORDERED: SACUBITRIL/VALSARTAN 1 EACH TABLET PO SCH (08:00)
[2021-03-07 08:30] VITALS: BP 134/63
[2021-03-07 09:33] LABS: HEMATOCRIT 31.7 % (36-48)
[2021-03-07] MEDS: METOPROLOL SUCCINATE 50 MG TAB.SR.24H PO SCH (09:44)
[2021-03-07] MEDS: PANTOPRAZOLE 40 MG/VIAL IVP SCH ×2 (09:44→19:35)
[2021-03-07 09:48] LABS: RETICULOCYTE % (AUTO) 2.28 % (0.42-2.23)
[2021-03-07] MEDS: FLUTICASONE PROPIONATE NASAL SCH ×2 (10:00→19:39)
[2021-03-07] MEDS ORDERED: CYANOCOBALAMIN (VITAMIN B-12) 1,000 MCG TABLET PO SCH (10:00)
[2021-03-07 10:26] LABS: THYROID STIMULATING HORMONE 6.99 uIU/mL (0.36-3.74)
[2021-03-07 11:30] VITALS: BP 144/58
[2021-03-07] MEDS ORDERED: FOLIC ACID 5 MG/ML VIAL IM SCH (12:30)
[2021-03-07] MEDS ORDERED: EPOETIN ALFA-EPBX (NON-ESRD) 10,000 UNIT/ML VIAL SQ SCH (12:30)
[2021-03-07] MEDS ORDERED: IRON SUCROSE COMPLEX 500 MG in 0.9%NACL 50ML 50 ML IV SCH (12:30)
[2021-03-07] MEDS: BRIMONIDINE TARTRATE 0.2% 5 ML BOTTLE OD SCH ×2 (12:41→19:39)
[2021-03-07] MEDS: ALBUTEROL INHALER 90MCG/INH IH SCH (12:41)
[2021-03-07] MEDS: LATANOPROST 2.5 ML DROPS OU SCH (12:42)
[2021-03-07] MEDS: LEVOTHYROXINE 88 MCG TABLET PO SCH (12:42)
[2021-03-07] MEDS ORDERED: COMPOUND IV MISC 1 EACH IVSOLN MISC PRN (13:00)
[2021-03-07] MEDS ORDERED: FUROSEMIDE 100MG VIAL IV SCH (13:00)
[2021-03-07] MEDS: ACETAMINOPHEN 325 MG TAB PO PRN (14:18)
[2021-03-07 15:15] LABS: HEMATOCRIT 31.7 % (36-48)
[2021-03-07] MEDS: ONDANSETRON 4MG INJ IV PRN (15:43)
[2021-03-07 16:00] VITALS: BP 133/58
[2021-03-07] MEDS: LEVOFLOXACIN 500 MG/D5W 100 ML 100 ML IV SCH (19:35)
[2021-03-07] MEDS: MONTELUKAST SODIUM 10 MG TAB PO SCH (19:36)
[2021-03-07] MEDS: SACUBITRIL/VALSARTAN 1 EACH TABLET PO SCH (19:36)
[2021-03-07] MEDS: GABAPENTIN 100 MG CAPSULE PO SCH (19:36)
[2021-03-07 20:32] VITALS: BP 141/63
[2021-03-08 00:36] VITALS: BP 119/55
[2021-03-08] MEDS: METRONIDAZOLE 500 MG TABLET PO SCH ×3 (02:28→16:42)
[2021-03-08 04:17] VITALS: BP 120/55
[2021-03-08 05:03] LABS: HEMATOCRIT 29.4 % (36-48); MEAN CORPUSCULAR HEMOGLOBIN 28.8 pg (27.0-33.0); MEAN CORPUSCULAR HGB CONC 30.6 g/dL (32.0-36.0); MEAN CORPUSCULAR VOLUME 94.2 fL (79-99); PLATELET COUNT (AUTO) 81 K/uL (130-400); RED BLOOD CELL COUNT(AUTO) 3.12 MIL/uL (4.00-5.50); RED CELL DISTRIBUTION WIDTH 13.9 % (11.0-15.5); WHITE BLOOD COUNT (AUTO) 3.9 K/uL (4.8-10.8)
[2021-03-08 05:25] LABS: CREATININE 0.9 mg/dL (0.5-1.5); POTASSIUM 3.6 mmol/L (3.5-5.1)
[2021-03-08] MEDS ORDERED: FUROSEMIDE 40MG VIAL IV SCH (06:00)
[2021-03-08] MEDS: INSULIN HUMULIN R 100 UNIT/ML 3ML SQ SCH ×2 (06:02→11:30)
[2021-03-08] MEDS: IPRATROPIUM 0.5 MG/2.5 ML INH IH SCH ×4 (06:47→23:21)
[2021-03-08 08:00] VITALS: BP 138/55
[2021-03-08] MEDS ORDERED: FUROSEMIDE 40 MG TABLET PO SCH (09:00)
[2021-03-08] MEDS: FLUTICASONE PROPIONATE NASAL SCH ×2 (09:00→20:00)
[2021-03-08] MEDS: POTASSIUM GLUCONATE PO SCH (09:00)
[2021-03-08] MEDS: SACUBITRIL/VALSARTAN 1 EACH TABLET PO SCH ×2 (09:22→19:43)
[2021-03-08] MEDS: ALBUTEROL INHALER 90MCG/INH IH SCH (09:23)
[2021-03-08] MEDS: PANTOPRAZOLE 40 MG/VIAL IVP SCH (09:23)
[2021-03-08] MEDS: METOPROLOL SUCCINATE 50 MG TAB.SR.24H PO SCH (09:23)
[2021-03-08] MEDS: LEVOTHYROXINE 88 MCG TABLET PO SCH (09:23)
[2021-03-08] MEDS: GABAPENTIN 100 MG CAPSULE PO SCH ×2 (09:23→19:46)
[2021-03-08] MEDS: LATANOPROST 2.5 ML DROPS OU SCH (09:24)
[2021-03-08] MEDS: BRIMONIDINE TARTRATE 0.2% 5 ML BOTTLE OD SCH ×2 (09:24→19:44)
[2021-03-08] MEDS ORDERED: IRON SUCROSE COMPLEX 400 MG in 0.9%NACL 50ML 50 ML IV SCH (09:30)
[2021-03-08 12:00] VITALS: BP 126/41
[2021-03-08] MEDS: TORSEMIDE 20 MG TAB PO SCH (12:04)
[2021-03-08] MEDS: ONDANSETRON 4MG INJ IV PRN (14:32)
[2021-03-08] MEDS ORDERED: MAGNESIUM CITRATE 296 ML SOLUTION PO SCH (15:30)
[2021-03-08 16:00] VITALS: BP 139/64
[2021-03-08] MEDS: MONTELUKAST SODIUM 10 MG TAB PO SCH (19:43)
[2021-03-08] MEDS: ACETAMINOPHEN 325 MG TAB PO PRN (19:44)
[2021-03-08] MEDS: LEVOFLOXACIN 500 MG/D5W 100 ML 100 ML IV SCH (19:45)
[2021-03-08 20:35] VITALS: BP 146/51
[2021-03-09] VITALS (7 sets, daily range): BP systolic 101–146; BP diastolic 46–72
[2021-03-09] MEDS: METRONIDAZOLE 500 MG TABLET PO SCH ×3 (01:59→18:41)
[2021-03-09 03:48] LABS: HEMATOCRIT 28.3 % (36-48); MEAN CORPUSCULAR HEMOGLOBIN 28.1 pg (27.0-33.0); MEAN CORPUSCULAR VOLUME 93.7 fL (79-99); RED BLOOD CELL COUNT(AUTO) 3.02 MIL/uL (4.00-5.50); RED CELL DISTRIBUTION WIDTH 14.2 % (11.0-15.5); WHITE BLOOD COUNT (AUTO) 3.6 K/uL (4.8-10.8)
[2021-03-09 04:00] LABS: POTASSIUM 3.3 mmol/L (3.5-5.1)
[2021-03-09] MEDS ORDERED: KCL 20 MEQ ERTAB PO ONE (04:30)
[2021-03-09 04:57] LABS: HEMOGLOBIN A1C 5.4 % (4.0-6.0)
[2021-03-09] MEDS: IPRATROPIUM 0.5 MG/2.5 ML INH IH SCH ×4 (06:29→23:05)
[2021-03-09] MEDS: GABAPENTIN 100 MG CAPSULE PO SCH ×3 (09:00→20:36)
[2021-03-09] MEDS: ALBUTEROL INHALER 90MCG/INH IH SCH (09:00)
[2021-03-09] MEDS: POTASSIUM GLUCONATE PO SCH (09:00)
[2021-03-09] MEDS: FLUTICASONE PROPIONATE NASAL SCH ×2 (09:00→20:37)
[2021-03-09] MEDS: LATANOPROST 2.5 ML DROPS OU SCH (09:14)
[2021-03-09] MEDS: BRIMONIDINE TARTRATE 0.2% 5 ML BOTTLE OD SCH ×2 (09:14→20:37)
[2021-03-09] MEDS: SACUBITRIL/VALSARTAN 1 EACH TABLET PO SCH ×2 (09:15→20:36)
[2021-03-09] MEDS: METOPROLOL SUCCINATE 50 MG TAB.SR.24H PO SCH (09:15)
[2021-03-09] MEDS: LEVOTHYROXINE 88 MCG TABLET PO SCH (09:16)
[2021-03-09] MEDS: TORSEMIDE 20 MG TAB PO SCH (09:16)
[2021-03-09] MEDS: LEVOFLOXACIN 500 MG/D5W 100 ML 100 ML IV SCH (18:42)
[2021-03-09] MEDS: MONTELUKAST SODIUM 10 MG TAB PO SCH (20:36)
[2021-03-09] MEDS: ACETAMINOPHEN 325 MG TAB PO PRN (20:45)
[2021-03-10] MEDS: METRONIDAZOLE 500 MG TABLET PO SCH ×3 (01:45→17:54)
[2021-03-10 04:11] VITALS: BP 126/51
[2021-03-10] MEDS: IPRATROPIUM 0.5 MG/2.5 ML INH IH SCH ×4 (05:13→23:31)
[2021-03-10] MEDS: LEVOTHYROXINE 88 MCG TABLET PO SCH (05:47)
[2021-03-10 08:00] VITALS: BP 120/52
[2021-03-10 08:31] LABS: BASOPHILS % (AUTO) 0.3 % (0.0-5.0); EOSINOPHILS % (AUTO) 2.6 % (0.0-8.0); LYMPHOCYTES % (AUTO) 18.7 % (21.0-51.0); MEAN CORPUSCULAR HEMOGLOBIN 28.8 pg (27.0-33.0); MEAN CORPUSCULAR HGB CONC 30.3 g/dL (32.0-36.0); MEAN CORPUSCULAR VOLUME 95.1 fL (79-99); MONOCYTES % (AUTO) 20.3 % (3.0-13.0); NEUTROPHILS % (AUTO) 56.2 % (40.0-77.0); PLATELET COUNT (AUTO) 109 K/uL (130-400); RED BLOOD CELL COUNT(AUTO) 3.26 MIL/uL (4.00-5.50); RED CELL DISTRIBUTION WIDTH 14.5 % (11.0-15.5); WHITE BLOOD COUNT (AUTO) 3.1 K/uL (4.8-10.8)
[2021-03-10 08:43] LABS: CREATININE 1.2 mg/dL (0.5-1.5); CRP QUANTITATIVE 65.9 mg/L (0.00-9.0); POTASSIUM 3.9 mmol/L (3.5-5.1)
[2021-03-10 08:57] LABS: B-TYPE NATRIURETIC PEPTIDE 502 pg/mL (0-100)
[2021-03-10] MEDS ORDERED: BISACODYL 5 MG TABLET.DR PO SCH (09:00)
[2021-03-10] MEDS: FLUTICASONE PROPIONATE NASAL SCH ×2 (09:00→20:21)
[2021-03-10] MEDS ORDERED: EPOETIN ALFA-EPBX (NON-ESRD) 10,000 UNIT/ML VIAL SQ SCH (09:00)
[2021-03-10] MEDS: POTASSIUM GLUCONATE PO SCH (09:00)
[2021-03-10] MEDS ORDERED: DOCUSATE SODIUM 100 MG CAP PO SCH (09:00)
[2021-03-10 09:36] LABS: ERYTHROCYTE SEDIMENTATION RATE 10 MM/HR (0-30)
[2021-03-10] MEDS: TORSEMIDE 20 MG TAB PO SCH (10:17)
[2021-03-10] MEDS: SACUBITRIL/VALSARTAN 1 EACH TABLET PO SCH ×2 (10:17→20:21)
[2021-03-10] MEDS: GABAPENTIN 100 MG CAPSULE PO SCH ×2 (10:17→20:21)
[2021-03-10] MEDS: LEVOTHYROXINE 100 MCG TABLET PO SCH (10:17)
[2021-03-10] MEDS: METOPROLOL SUCCINATE 50 MG TAB.SR.24H PO SCH (10:17)
[2021-03-10] MEDS: LATANOPROST 2.5 ML DROPS OU SCH (10:59)
[2021-03-10] MEDS: ALBUTEROL INHALER 90MCG/INH IH SCH (10:59)
[2021-03-10] MEDS: BRIMONIDINE TARTRATE 0.2% 5 ML BOTTLE OD SCH ×2 (10:59→20:23)
[2021-03-10 12:00] VITALS: BP 130/51
[2021-03-10 16:00] VITALS: BP 125/55
[2021-03-10] MEDS: ACETAMINOPHEN 325 MG TAB PO PRN (18:24)
[2021-03-10] MEDS ORDERED: EPOETIN ALFA-EPBX (NON-ESRD) 10,000 UNIT/ML VIAL SQ ONE (18:45)
[2021-03-10 19:00] VITALS: BP 99/40
[2021-03-10] MEDS: METOCLOPRAMIDE 10 MG TABLET ONE ×2 (20:20→20:22)
[2021-03-10] MEDS: MONTELUKAST SODIUM 10 MG TAB PO SCH (20:21)
[2021-03-10] MEDS: LEVOFLOXACIN 500 MG/D5W 100 ML 100 ML IV SCH ×2 (20:21→20:23)
[2021-03-10] MEDS: METOCLOPRAMIDE 5 MG TABLET PO SCH (20:22)
[2021-03-11] VITALS: BP 100/43
[2021-03-11] MEDS: METRONIDAZOLE 500 MG TABLET PO SCH ×2 (03:03→10:37)
[2021-03-11] MEDS: LEVOTHYROXINE 100 MCG TABLET PO SCH (03:25)
[2021-03-11 04:00] VITALS: BP 115/61
[2021-03-11 04:10] LABS: HEMATOCRIT 28.7 % (36-48); MEAN CORPUSCULAR HGB CONC 31.4 g/dL (32.0-36.0); MEAN CORPUSCULAR VOLUME 92.6 fL (79-99); PLATELET COUNT (AUTO) 102 K/uL (130-400); RED CELL DISTRIBUTION WIDTH 14.6 % (11.0-15.5); WHITE BLOOD COUNT (AUTO) 2.9 K/uL (4.8-10.8)
[2021-03-11 05:30] LABS: CREATININE 1.4 mg/dL (0.5-1.5); POTASSIUM 3.9 mmol/L (3.5-5.1)
[2021-03-11] MEDS: IPRATROPIUM 0.5 MG/2.5 ML INH IH SCH ×2 (06:07→12:15)
[2021-03-11] MEDS: METOCLOPRAMIDE 5 MG TABLET PO SCH ×2 (06:08→10:37)
[2021-03-11 06:26] LABS: EOSINOPHILS % (MANUAL) 4 % (1-6); LYMPHOCYTES % (MANUAL) 30 % (22-44); MAN.DIFF COMMENT-IMPRESSION MANUAL DIFFERENTIAL; MONOCYTES % (MANUAL) 20 % (2-9); SEGMENTED NEUTROPHILS % 46 % (40-70)
[2021-03-11 06:27] LABS: PLATELET MORPHOLOGY COMMENT SLIGHTLY DECREASED
[2021-03-11] MEDS: POTASSIUM GLUCONATE PO SCH (07:49)
[2021-03-11 07:54] VITALS: BP 131/53
[2021-03-11] MEDS: TORSEMIDE 20 MG TAB PO SCH (07:55)
[2021-03-11] MEDS: METOPROLOL SUCCINATE 50 MG TAB.SR.24H PO SCH (07:55)
[2021-03-11] MEDS: GABAPENTIN 100 MG CAPSULE PO SCH (07:55)
[2021-03-11] MEDS: LATANOPROST 2.5 ML DROPS OU SCH (07:58)
[2021-03-11] MEDS: ALBUTEROL INHALER 90MCG/INH IH SCH (07:58)
[2021-03-11] MEDS: FLUTICASONE PROPIONATE NASAL SCH (07:58)
[2021-03-11] MEDS: BRIMONIDINE TARTRATE 0.2% 5 ML BOTTLE OD SCH (07:58)
[2021-03-11] MEDS ORDERED: METO5TAB2 PO (08:56)
[2021-03-11] MEDS ORDERED: LEVO500T90 PO (08:56)
[2021-03-11] MEDS ORDERED: METR-172 PO (08:56)
[2021-03-11] MEDS ORDERED: LEVO100T4 PO (08:56)
[2021-03-11] MEDS ORDERED: TORS20TA4 PO (08:56)
[2021-03-11] MEDS ORDERED: APIXABAN 5 MG TABLET PO SCH (09:00)
[2021-03-11] MEDS: SACUBITRIL/VALSARTAN 1 EACH TABLET PO SCH (10:37)
[2021-03-11 10:50] VITALS: BP 126/51
== END 2021-03-11 15:10 | disposition home or self-care (01) | DRG 377 ==
LOC: EDH 11:57 → EDHIP 16:46 → 4BH 22:26
PROVIDERS: ADMIT Internal Medicine; ATTEND Internal Medicine
PROC: 5A09357 Assistance with Respiratory Ventilation, Less than 24 Consecutive Hours, Continuous Positive Airway Pressure (ICD-10-PCS; principal; 2021-03-07)
PROC: 5A09357 Assistance with Respiratory Ventilation, Less than 24 Consecutive Hours, Continuous Positive Airway Pressure (ICD-10-PCS; 2021-03-08)
PROC: 5A09357 Assistance with Respiratory Ventilation, Less than 24 Consecutive Hours, Continuous Positive Airway Pressure (ICD-10-PCS; 2021-03-09)
PROC: 5A09357 Assistance with Respiratory Ventilation, Less than 24 Consecutive Hours, Continuous Positive Airway Pressure (ICD-10-PCS; 2021-03-11)
DX: K57.93 Diverticulitis of intestine, part unspecified, without perforation or abscess with bleeding (principal); J96.01 Acute respiratory failure with hypoxia; I50.43 Acute on chronic combined systolic (congestive) and diastolic (congestive) heart failure; J81.0 Acute pulmonary edema; N39.0 Urinary tract infection, site not specified; Z68.42 Body mass index [BMI] 45.0-49.9, adult; J98.11 Atelectasis; E03.9 Hypothyroidism, unspecified; E11.9 Type 2 diabetes mellitus without complications; E66.01 Morbid (severe) obesity due to excess calories; E78.00 Pure hypercholesterolemia, unspecified; I11.0 Hypertensive heart disease with heart failure; I25.10 Atherosclerotic heart disease of native coronary artery without angina pectoris; I48.91 Unspecified atrial fibrillation; Z20.822 Contact with and (suspected) exposure to COVID-19; M81.0 Age-related osteoporosis without current pathological fracture; D69.6 Thrombocytopenia, unspecified; I08.2 Rheumatic disorders of both aortic and tricuspid valves; B96.1 Klebsiella pneumoniae [K. pneumoniae] as the cause of diseases classified elsewhere; J44.9 Chronic obstructive pulmonary disease, unspecified; K59.00 Constipation, unspecified; Z88.6 Allergy status to analgesic agent; Z88.5 Allergy status to narcotic agent; Z88.0 Allergy status to penicillin; Z79.4 Long term (current) use of insulin; Z79.01 Long term (current) use of anticoagulants; Z95.1 Presence of aortocoronary bypass graft; Z95.0 Presence of cardiac pacemaker; Z83.3 Family history of diabetes mellitus; Z82.5 Family history of asthma and other chronic lower respiratory diseases; Z82.49 Family history of ischemic heart disease and other diseases of the circulatory system; Z82.3 Family history of stroke; Z82.0 Family history of epilepsy and other diseases of the nervous system
CPT/HCPCS: 36415; 71045; 71046; 71100; 71250; 74176; 76604; 80048; 80053; 81001; 82270; 82306; 82607; 82728; 82746; 82948; 83036; 83540; 83550; 83735; 83880; 84145; 84443; 84484; 85014; 85018; 85025; 85027; 85045; 85610; 85651; 85730; 86140; 86850; 86900; 86901; 87077; 87088; 87186; 87635; 93005; 94640; 94660; 94664; 97039; C9113; G0378; J0360; J1756; J1940; J1956; J2405; J3490; J7030

== ENCOUNTER → 2021-08-01 | Outpatient (CLI) | payer OTHER ==
[~2021-08-01] MED LIST changes: -CYAN250014 PO; -FURO40TA5 PO; -IRON PO; +LEVO100T4 PO; +LEVO500T90 PO; -LEVO88TA7 PO; +METO5TAB2 PO; +METR-172 PO; -POTA99TA26 PO; +TORS20TA4 PO
[2021-08-01 14:27] LABS: EOSINOPHILS % (AUTO) 3.6 % (0.0-8.0); HEMATOCRIT 32.4 % (36-48); LYMPHOCYTES % (AUTO) 30.2 % (21.0-51.0); MEAN CORPUSCULAR HEMOGLOBIN 29.6 pg (27.0-33.0); MEAN CORPUSCULAR HGB CONC 30.6 g/dL (32.0-36.0); MONOCYTES % (AUTO) 12.9 % (3.0-13.0); NEUTROPHILS % (AUTO) 52.9 % (40.0-77.0); PLATELET COUNT (AUTO) 86 K/uL (130-400); RED BLOOD CELL COUNT(AUTO) 3.34 MIL/uL (4.00-5.50); RED CELL DISTRIBUTION WIDTH 14.5 % (11.0-15.5); WHITE BLOOD COUNT (AUTO) 2.8 K/uL (4.8-10.8)
[2021-08-01 14:36] LABS: CREATININE 1.1 mg/dL (0.5-1.5); POTASSIUM 4.4 mmol/L (3.5-5.1)
[2021-08-01 16:26] LABS: BAND NEUTROPHILS % (MANUAL) 2 % (0-2); EOSINOPHILS % (MANUAL) 1 % (1-6); LYMPHOCYTES % (MANUAL) 26 % (22-44); MAN.DIFF COMMENT-IMPRESSION MANUAL DIFFERENTIAL; MONOCYTES % (MANUAL) 10 % (2-9); SEGMENTED NEUTROPHILS % 61 % (40-70)
== END | disposition home or self-care (01) ==
LOC: LAB 13:28
PROVIDERS: ATTEND Urology
DX: K66.1 Hemoperitoneum (principal)
CPT/HCPCS: 36415; 80048; 85025

== ENCOUNTER 2021-10-15 12:44 | Observation (INO) | payer OTHER ==
[~2021-10-15] VITALS: Ht 160 cm; Wt 90.1 kg
[~2021-10-15 12:44] MED LIST changes: +LEVO-70 PO; -LEVO500T90 PO
[2021-10-15] MEDS ORDERED: HYDROCODONE/ACETAMINOPHEN 5/325 MG TAB PO ONE (13:00)
[2021-10-15 13:12] LABS: BASOPHILS % (AUTO) 0.4 % (0.0-5.0); EOSINOPHILS % (AUTO) 2.6 % (0.0-8.0); HEMATOCRIT 27.7 % (36-48); LYMPHOCYTES % (AUTO) 27.6 % (21.0-51.0); MEAN CORPUSCULAR HEMOGLOBIN 29.6 pg (27.0-33.0); MEAN CORPUSCULAR HGB CONC 32.1 g/dL (32.0-36.0); MONOCYTES % (AUTO) 13.1 % (3.0-13.0); NEUTROPHILS % (AUTO) 55.9 % (40.0-77.0); PLATELET COUNT (AUTO) 106 K/uL (130-400); RED BLOOD CELL COUNT(AUTO) 3.01 MIL/uL (4.00-5.50); RED CELL DISTRIBUTION WIDTH 13.3 % (11.0-15.5); WHITE BLOOD COUNT (AUTO) 2.7 K/uL (4.8-10.8)
[2021-10-15 13:19] LABS: CREATININE 0.9 mg/dL (0.5-1.5); INR 1.2 (0.85-1.15); POTASSIUM 4.1 mmol/L (3.5-5.1); PROTHROMBIN TIME 12.9 SEC (9.6-11.6)
[2021-10-15 13:21] LABS: PARTIAL THROMBOPLASTIN TIME 31.3 SEC (26.3-35.5)
[2021-10-15 13:23] LABS: CRP QUANTITATIVE 45.1 mg/L (0.00-9.0); TOTAL PROTEIN, SERUM 7.2 g/dL (6.0-8.3)
[2021-10-15 13:29] LABS: APPEARANCE,URINE CLEAR (CLEAR); BILIRUBIN,URINE NEGATIVE (NEGATIVE); COLOR,URINE YELLOW (YELLOW); GLUCOSE, URINE (UA) NEGATIVE (NEGATIVE); KETONES,URINE NEGATIVE (NEGATIVE); LEUKOCYTE ESTERASE ,URINE NEGATIVE (NEGATIVE); NITRATE,URINE NEGATIVE (NEGATIVE); OCCULT BLOOD,URINE NEGATIVE (NEGATIVE); PH,URINE 7.5 (5.0-8.0); PROTEIN,URINE NEGATIVE (NEGATIVE); UROBILINOGEN,URINE 0.2 mg/dL (0.2-1.0)
[2021-10-15 13:44] LABS: B-TYPE NATRIURETIC PEPTIDE 728 pg/mL (0-100)
[2021-10-15] MEDS ORDERED: CEFTRIAXONE 1G VIAL IVP ONE (14:00)
[2021-10-15] MEDS ORDERED: ALBUTEROL INHALER 90MCG/INH IH ONE (14:00)
[2021-10-15] MEDS ORDERED: AZITHROMYCIN 250 MG TABLET PO ONE (14:00)
[2021-10-15 14:06] LABS: BAND NEUTROPHILS % (MANUAL) 1 % (0-2); EOSINOPHILS % (MANUAL) 2 % (1-6); LYMPHOCYTES % (MANUAL) 29 % (22-44); MAN.DIFF COMMENT-IMPRESSION MANUAL DIFFERENTIAL; MONOCYTES % (MANUAL) 10 % (2-9); SEGMENTED NEUTROPHILS % 58 % (40-70)
[2021-10-15 14:07] LABS: PLATELET MORPHOLOGY COMMENT MARKED DECREASE
[2021-10-15] MEDS ORDERED: ALBU8.5H8 IH (14:08)
[2021-10-15] MEDS ORDERED: DOXY-336 PO (14:08)
[2021-10-15] MEDS ORDERED: ALBUTEROL 0.083% 2.5 MG/3 ML INH IH PRN (14:30)
[2021-10-15] MEDS ORDERED: LACTULOSE 20 GM/30 ML UDCUP PO PRN (14:30)
[2021-10-15] MEDS ORDERED: LABETALOL 20MG SYG IV PRN (14:30)
[2021-10-15] MEDS ORDERED: HYDRALAZINE 20MG/ML VIAL IV PRN (14:30)
[2021-10-15] MEDS ORDERED: ONDANSETRON 4MG INJ IVP PRN (14:30)
[2021-10-15] MEDS: FUROSEMIDE 40MG VIAL IV SCH (15:17)
[2021-10-15] MEDS ORDERED: GABA-529 PO (15:38)
[2021-10-15] MEDS ORDERED: LORA10TA7 PO (15:38)
[2021-10-15] MEDS: INSULIN HUMULIN R 100 UNIT/ML 3ML SQ SCH ×2 (16:30→21:00)
[2021-10-15 17:50] VITALS: BP 125/52
[2021-10-15 19:00] VITALS: BP 135/49
[2021-10-15] MEDS: CEFEPIME HCL 2 GM VIAL IVP SCH (21:05)
[2021-10-15] MEDS: DOXYCYCLINE 100MG+NS 250ML IV SCH (21:05)
[2021-10-16] VITALS: BP 130/54
[2021-10-16] MEDS: FUROSEMIDE 40MG VIAL IV SCH ×2 (03:25→14:06)
[2021-10-16 04:00] VITALS: BP 119/56
[2021-10-16 04:57] LABS: BASOPHILS % (AUTO) 0.8 % (0.0-5.0); EOSINOPHILS % (AUTO) 3.6 % (0.0-8.0); HEMATOCRIT 26.9 % (36-48); LYMPHOCYTES % (AUTO) 30.6 % (21.0-51.0); MEAN CORPUSCULAR HEMOGLOBIN 29.5 pg (27.0-33.0); MEAN CORPUSCULAR HGB CONC 31.6 g/dL (32.0-36.0); MEAN CORPUSCULAR VOLUME 93.4 fL (79-99); MONOCYTES % (AUTO) 13.5 % (3.0-13.0); NEUTROPHILS % (AUTO) 51.5 % (40.0-77.0); PLATELET COUNT (AUTO) 94 K/uL (130-400); RED BLOOD CELL COUNT(AUTO) 2.88 MIL/uL (4.00-5.50); RED CELL DISTRIBUTION WIDTH 13.4 % (11.0-15.5); WHITE BLOOD COUNT (AUTO) 2.5 K/uL (4.8-10.8)
[2021-10-16 05:32] LABS: B-TYPE NATRIURETIC PEPTIDE 734 pg/mL (0-100)
[2021-10-16 05:36] LABS: POTASSIUM 3.7 mmol/L (3.5-5.1); THYROID STIMULATING HORMONE 9.38 uIU/mL (0.36-3.74)
[2021-10-16] MEDS: INSULIN HUMULIN R 100 UNIT/ML 3ML SQ SCH ×4 (06:58→20:16)
[2021-10-16 08:00] VITALS: BP 123/55
[2021-10-16] MEDS: CEFEPIME HCL 2 GM VIAL IVP SCH (09:00)
[2021-10-16] MEDS ORDERED: ENOXAPARIN SODIUM 30 MG/0.3 ML SQ SCH (09:00)
[2021-10-16] MEDS: DOXYCYCLINE 100MG+NS 250ML IV SCH ×2 (09:00→21:21)
[2021-10-16] MEDS: POLYETHYLENE GLYCOL 3350 17 GM POWD.PACK PO SCH (09:09)
[2021-10-16] MEDS: PANTOPRAZOLE 40 MG TAB DR PO SCH (09:09)
[2021-10-16 12:00] VITALS: BP 133/61
[2021-10-16 16:00] VITALS: BP 147/74
[2021-10-16 20:09] VITALS: BP 143/73
[2021-10-16] MEDS: SOLU-MEDROL 40MG VIAL IVP SCH (21:21)
[2021-10-16] MEDS: APIXABAN 5 MG TABLET PO SCH (21:21)
[2021-10-16] MEDS: SACUBITRIL/VALSARTAN 1 EACH TABLET PO SCH (21:21)
[2021-10-16] MEDS: MONTELUKAST SODIUM 10 MG TAB PO SCH (21:21)
[2021-10-16] MEDS: ACETAMINOPHEN 325 MG TAB PO PRN (22:21)
[2021-10-17 01:06] VITALS: BP 151/72
[2021-10-17] MEDS: FUROSEMIDE 40MG VIAL IV SCH ×2 (02:56→14:40)
[2021-10-17 04:23] LABS: BASOPHILS % (AUTO) 0.5 % (0.0-5.0); EOSINOPHILS % (AUTO) 0.5 % (0.0-8.0); HEMATOCRIT 29.1 % (36-48); LYMPHOCYTES % (AUTO) 15.5 % (21.0-51.0); MEAN CORPUSCULAR HEMOGLOBIN 29.7 pg (27.0-33.0); MONOCYTES % (AUTO) 3.8 % (3.0-13.0); NEUTROPHILS % (AUTO) 79.2 % (40.0-77.0); PLATELET COUNT (AUTO) 88 K/uL (130-400); RED BLOOD CELL COUNT(AUTO) 3.13 MIL/uL (4.00-5.50); RED CELL DISTRIBUTION WIDTH 13.3 % (11.0-15.5); WHITE BLOOD COUNT (AUTO) 2.1 K/uL (4.8-10.8)
[2021-10-17 04:32] VITALS: BP 125/63
[2021-10-17 04:50] LABS: POTASSIUM 3.9 mmol/L (3.5-5.1); TOTAL PROTEIN, SERUM 7.3 g/dL (6.0-8.3)
[2021-10-17 07:06] VITALS: BP 144/72
[2021-10-17] MEDS: INSULIN HUMULIN R 100 UNIT/ML 3ML SQ SCH ×5 (07:30→20:19)
[2021-10-17] MEDS: LEVOTHYROXINE 50 MCG TABLET PO SCH (07:33)
[2021-10-17] MEDS: CHOLECALCIFEROL 1000 UNIT PO SCH (09:00)
[2021-10-17] MEDS: DOXYCYCLINE 100MG+NS 250ML IV SCH ×2 (10:36→20:31)
[2021-10-17] MEDS: GABAPENTIN 100 MG CAPSULE PO SCH (10:36)
[2021-10-17] MEDS: SACUBITRIL/VALSARTAN 1 EACH TABLET PO SCH ×2 (10:36→20:35)
[2021-10-17] MEDS: POLYETHYLENE GLYCOL 3350 17 GM POWD.PACK PO SCH (10:36)
[2021-10-17] MEDS: SOLU-MEDROL 40MG VIAL IVP SCH ×2 (10:36→20:34)
[2021-10-17] MEDS: PANTOPRAZOLE 40 MG TAB DR PO SCH (10:36)
[2021-10-17] MEDS: LORATADINE 10 MG TABLET PO SCH (10:36)
[2021-10-17] MEDS: METOPROLOL SUCCINATE 25 MG TAB.SR.24H PO SCH (10:36)
[2021-10-17] MEDS: APIXABAN 5 MG TABLET PO SCH ×2 (10:51→20:35)
[2021-10-17] MEDS: ACETAMINOPHEN 325 MG TAB PO PRN (10:53)
[2021-10-17 12:07] VITALS: BP 148/81
[2021-10-17 16:05] VITALS: BP 140/70
[2021-10-17 20:20] VITALS: BP 141/75
[2021-10-17] MEDS: MONTELUKAST SODIUM 10 MG TAB PO SCH (20:35)
[2021-10-18 01:39] VITALS: BP 140/70
[2021-10-18] MEDS: FUROSEMIDE 40MG VIAL IV SCH ×2 (01:42→15:09)
[2021-10-18 05:27] LABS: CREATININE 1.1 mg/dL (0.5-1.5)
[2021-10-18 05:34] LABS: LYMPHOCYTES % (AUTO) 19.3 % (21.0-51.0); MEAN CORPUSCULAR HEMOGLOBIN 29.5 pg (27.0-33.0); MEAN CORPUSCULAR HGB CONC 32.1 g/dL (32.0-36.0); MEAN CORPUSCULAR VOLUME 92.1 fL (79-99); MONOCYTES % (AUTO) 3.6 % (3.0-13.0); NEUTROPHILS % (AUTO) 76.3 % (40.0-77.0); PLATELET COUNT (AUTO) 101 K/uL (130-400); RED BLOOD CELL COUNT(AUTO) 3.15 MIL/uL (4.00-5.50); RED CELL DISTRIBUTION WIDTH 13.2 % (11.0-15.5); WHITE BLOOD COUNT (AUTO) 2.5 K/uL (4.8-10.8)
[2021-10-18 06:05] LABS: LYMPHOCYTES % (MANUAL) 19 % (22-44); SEGMENTED NEUTROPHILS % 81 % (40-70)
[2021-10-18 06:06] LABS: MAN.DIFF COMMENT-IMPRESSION MANUAL DIFFERENTIAL; PLATELET MORPHOLOGY COMMENT DECREASED
[2021-10-18] MEDS: LEVOTHYROXINE 50 MCG TABLET PO SCH (06:33)
[2021-10-18] MEDS: INSULIN HUMULIN R 100 UNIT/ML 3ML SQ SCH ×2 (06:33→11:30)
[2021-10-18 07:00] VITALS: BP 139/67
[2021-10-18] MEDS: CHOLECALCIFEROL 1000 UNIT PO SCH (09:00)
[2021-10-18] MEDS: DOXYCYCLINE 100MG+NS 250ML IV SCH (09:39)
[2021-10-18] MEDS: GABAPENTIN 100 MG CAPSULE PO SCH (09:39)
[2021-10-18] MEDS: SOLU-MEDROL 40MG VIAL IVP SCH (09:39)
[2021-10-18] MEDS: SACUBITRIL/VALSARTAN 1 EACH TABLET PO SCH (09:39)
[2021-10-18] MEDS: METOPROLOL SUCCINATE 25 MG TAB.SR.24H PO SCH (09:39)
[2021-10-18] MEDS: POLYETHYLENE GLYCOL 3350 17 GM POWD.PACK PO SCH (09:39)
[2021-10-18] MEDS: LORATADINE 10 MG TABLET PO SCH (09:39)
[2021-10-18] MEDS: PANTOPRAZOLE 40 MG TAB DR PO SCH (09:39)
[2021-10-18] MEDS: APIXABAN 5 MG TABLET PO SCH (09:40)
[2021-10-18 12:20] VITALS: BP 134/65
[2021-10-18] MEDS ORDERED: DOXY100T21 PO (14:27)
[2021-10-18] MEDS ORDERED: DEXA6TAB7 PO (14:27)
== END 2021-10-18 16:00 | disposition still patient (30) ==
LOC: EDH 12:44 → INTOOBSV 14:26 → OBSVTOIN 14:26 → EDHIP 14:26 → 3AH 17:32
PROVIDERS: ADMIT Internal Medicine Critical Care Medicine; ATTEND Internal Medicine Critical Care Medicine
DX: U07.1 COVID-19 (principal); J12.82 Pneumonia due to coronavirus disease 2019; E87.70 Fluid overload, unspecified; I11.0 Hypertensive heart disease with heart failure; I50.41 Acute combined systolic (congestive) and diastolic (congestive) heart failure; I48.91 Unspecified atrial fibrillation; G47.33 Obstructive sleep apnea (adult) (pediatric); E03.9 Hypothyroidism, unspecified; E11.51 Type 2 diabetes mellitus with diabetic peripheral angiopathy without gangrene; D64.9 Anemia, unspecified; E66.9 Obesity, unspecified; I25.10 Atherosclerotic heart disease of native coronary artery without angina pectoris; M81.0 Age-related osteoporosis without current pathological fracture; R55 Syncope and collapse; M79.662 Pain in left lower leg; J44.0 Chronic obstructive pulmonary disease with (acute) lower respiratory infection; Z79.01 Long term (current) use of anticoagulants; Z88.0 Allergy status to penicillin; Z88.6 Allergy status to analgesic agent; Z90.49 Acquired absence of other specified parts of digestive tract; Z79.899 Other long term (current) drug therapy; Z98.890 Other specified postprocedural states; Z86.718 Personal history of other venous thrombosis and embolism
CPT/HCPCS: 96365; 96366 ×6; 96375 ×2; 99285; 84484; 80053 ×2; 83880 ×2; 85025 ×4; 85610; 85730; 87804 ×2; 82948 ×11; 83605 ×2; 86140; 81003; 36415 ×4; 87635; 71045; 93971; 93005; 94667; 96376 ×3; 84443; 83735 ×2; 84100; 80048 ×2; 71250; 97161; 97039 ×2; 84145; 96372; 97116; 94760 ×2; G0378 ×71; C9803; J0696; J3490 ×6; J0692 ×2; J1940 ×7; J1650; J2920 ×4; J1815

== ENCOUNTER → 2021-11-21 | Outpatient (CLI) | payer OTHER ==
[~2021-11-21] MED LIST changes: -ALBU8.5H8 IH; -BRIM5DRO4 OD; +DEXA6TAB7 PO; +DOXY100T21 PO; -FLUT15.845 NS; -LATA7.5D OU; -LEVO-70 PO; -LEVO100T4 PO; +LORA10TA7 PO; -METO5TAB2 PO; -METR-172 PO; -PANT40TA54 PO
[2021-11-21 13:03] LABS: CREATININE 1.1 mg/dL (0.5-1.5); POTASSIUM 4.4 mmol/L (3.5-5.1)
== END | disposition home or self-care (01) ==
LOC: LAB 09:40
PROVIDERS: ATTEND Internal Medicine Cardiovascular Disease
DX: I50.42 Chronic combined systolic (congestive) and diastolic (congestive) heart failure (principal); I48.20 Chronic atrial fibrillation, unspecified
CPT/HCPCS: 36415; 80048; 83880

== ENCOUNTER → 2022-02-27 | Outpatient (CLI) | payer OTHER ==
[2022-02-27 16:22] LABS: CREATININE 1.5 mg/dL (0.5-1.5); POTASSIUM 4.1 mmol/L (3.5-5.1)
[2022-02-27 16:24] LABS: BASOPHILS % (AUTO) 0.6 % (0.0-5.0); EOSINOPHILS % (AUTO) 2.9 % (0.0-8.0); HEMATOCRIT 26.5 % (36-48); LYMPHOCYTES % (AUTO) 30.5 % (21.0-51.0); MEAN CORPUSCULAR HEMOGLOBIN 25.5 pg (27.0-33.0); MEAN CORPUSCULAR HGB CONC 29.1 g/dL (32.0-36.0); MEAN CORPUSCULAR VOLUME 87.7 fL (79-99); MONOCYTES % (AUTO) 16.7 % (3.0-13.0); PLATELET COUNT (AUTO) 103 K/uL (130-400); RED BLOOD CELL COUNT(AUTO) 3.02 MIL/uL (4.00-5.50); RED CELL DISTRIBUTION WIDTH 14.9 % (11.0-15.5); WHITE BLOOD COUNT (AUTO) 3.1 K/uL (4.8-10.8)
[2022-02-27 16:50] LABS: B-TYPE NATRIURETIC PEPTIDE 686 pg/mL (0-100)
== END | disposition home or self-care (01) ==
LOC: LAB 11:46
PROVIDERS: ATTEND Internal Medicine Cardiovascular Disease
DX: R60.0 Localized edema (principal)
CPT/HCPCS: 36415; 80048; 83880; 85025